=== PATIENT | female | born 1975 | race Hispanic/Latino ===

== ENCOUNTER 2023-04-15 15:51 | Emergency (ER) | payer BC, OTHER ==
[2023-04-15 17:40] LABS: Hematocrit 43.9 % (36.0-45.0); Lymphocytes % 22.6 % (15.3-44.8); MCV 88.4 fL (80-100); MPV 7.3 fL (7.6-11.3); RBC Red Blood Cell Count 4.96 M/uL (3.86-4.86)
[2023-04-15 17:46] LABS: Protime INR 1.11
[2023-04-15 17:46] LABS: Specific Gravity 1.012 (1.005-1.030)
[2023-04-15 17:57] LABS: Albumin 3.7 g/dL (3.4-5.0); Bilirubin Total 0.4 mg/dL (0.2-1.0); Potassium 3.5 mEq/L (3.5-5.1); Protein, Total 7.6 g/dL (6.4-8.2)
[2023-04-15 18:01] LABS: Specific Gravity 1.012 (1.005-1.030); Urine Bacteria None Seen /HPF (<20); Urine Bilirubin NEGATIVE (Negative); Urine Blood Negative (Negative); Urine Clarity Turbid (Clear); Urine Color Light-Yellow (Yellow); Urine Glucose NEGATIVE (Negative); Urine Mucus Slight /HPF (None Seen); Urine Protein NEGATIVE (Negative); Urine RBC <5 /HPF (None Seen); Urine Urobilinogen Normal (Normal); Urine pH 5.5 (5.0-7.0)
--- NOTE | 2023-04-15 18:52 | RAD REPORT ---
EXAM DESCRIPTION: CTAbdomen Pelvis W Contrast - 04/15/2023 6:22 pm CLINICAL HISTORY: Abdominal pain. EPIGASTRIC PAIN COMPARISON: No comparisons TECHNIQUE: Biphasic CT imaging of the abdomen and pelvis was performed with 100 ml non-ionic IV cont rast. All CT scans are performed using dose optimization technique as appropriate and may include automated exposure control or mA/KV adjustment according to patient size. FINDINGS: The lung bases are clear.Cholecystectomy clips. The liver, spleen, pancreas, adrenal glands and kidneys are within normal limits. No bowel obstruction, free air, free fluid or abscess. Mild sigmoid diverticulosis coli without diver ticulitis. The appendix is normal. No evidence of significant lymphadenopathy. Mild lumbar degenerative changes. IMPRESSION: No acute intra-abdominal or pelvic finding.
--- NOTE | 2023-04-15 19:18 | ER ---
Nurse's Notes [facility] Name: Umair Cedeno Age: 47 yrs Sex: Female : 1975 Arrival Date: 04/15/2023 Time: 15:51 Bed 6 Private MD: Diagnosis: Epigastric pain Presentation: 04/15 15:57 Chief complaint: Patient states: black diarrhea x 2 days ago. Pt reports sharp abd pain aa5 episodes today, currently denies pain. Pt denies nausea/vomiting, reports acid reflux. Coronavirus screen: diarrhea. Ebola Screen: Patient denies travel to an Ebola-affected area in the 21 days before illness onset. Initial Sepsis Screen: Does the patient meet any 2 criteria? No. Patient's initial sepsis screen is negative. Does the patient have a suspected source of infection? No. Patient's initial sepsis screen is negative. Risk Assessment: Do you want to hurt yourself or someone else? Patient reports no desire to harm self or others. Onset of symptoms was March 2023. 15:57 Acuity: CHAPARRO 3 aa5 15:57 Method Of Arrival: Ambulatory aa5 Historical: - Allergies: 15:59 Bactrim; aa5 15:59 tramadol; aa5 - PMHx: 15:59 Hypertensive disorder; Pre-diabetes; aa5 - PSHx: 15:59 monserrat meniscus repair; Cholecystectomy; section; aa5 - Immunization history:: Adult Immunizations unknown. - Social history:: Smoking status: Patient denies any tobacco usage or history of. Screenin:33 [facility] ED Fall Risk Assessment (Adult) History of falling in the last 3 months, jb4 including since admission No falls in past 3 months (0 pts) Confusion or Disorientation No (0 pts) Score/Fall Risk Level 0 - 2 = Low Risk Oriented to surroundings, Maintained a safe environment. Abuse screen: Denies threats or abuse. Nutritional screening: No deficits noted. Tuberculosis screening: No symptoms or risk factors identified. Assessment: 17:10 Reassessment: Patient appears in no apparent distress at this time. db 17:21 Reassessment: PATIENT AMBULATORY TO RESTROOM. db 19:16 Reassessment: Patient appears in no apparent distress at this time. Patient and/or jb4 family updated on plan of care and expected duration. Pain level reassessed. Patient is alert, oriented x 3, equal unlabored respirations, skin warm/dry/pink. Vital Signs: 15:57 BP 147 / 104; Pulse 88; Resp 18 S; Temp 97.6(TE); Pulse Ox 97% on R/A; Weight 103.87 kg aa5 (R); Height 5 ft. 2 in. (R); 19:00 BP 133 / 99; Pulse 81; Resp 16; Pulse Ox 99% ; jb4 15:57 Body Mass Index 41.88 (103.87 kg, 157.48 cm) aa5 ED Course: 15:55 Patient arrived in ED. im 15:57 Arm band placed on. aa5 15:59 Triage completed. aa5 16:03 Rohith Bhagat PA is PHCP. cp 16:03 Rohith Quan MD is Attending Physician. cp 16:40 Patient placed in an exam room, on a stretcher. ll1 17:09 Hilary Enriquez, RN is Primary Nurse. db 17:28 Inserted saline lock: 20 gauge in right antecubital area, using aseptic technique. db Blood collected. 18:24 CT Abd/Pelvis - IV Contrast Only In Process Unspecified. EDMS 19:17 Balod Santiago MD is Referral Physician. cp 19:33 Patient has correct armband on for positive identification. Placed in gown. Bed in low jb4 position. Call light in reach. Side rails up X 1. Client placed on continuous cardiac and pulse oximetry monitoring. NIBP monitoring applied. 19:33 No provider procedures requiring assistance completed. IV discontinued, intact, jb4 bleeding controlled, No redness/swelling at site. Pressure dressing applied. Administered Medications: No medications were administered Outcome: 19:17 Discharge ordered by . cp 19:33 Discharged to home ambulatory. jb4 19:33 Condition: stable 19:33 Discharge instructions given to patient, Instructed on discharge instructions, follow up and referral plans. medication usage, Demonstrated understanding of instructions, follow-up care, medications, Prescriptions given X 1. 19:34 Patient left the ED. jb4 Signatures: Dispatcher [employer] EDMS Rossy Mojica RN RN aa5 Rohith Bhagat PA PA cp Bryson, James, RN RN jb4 Sherie Portillo RN RN [facility] Hilary Enriquez, OTF RN db Sahu, Paige im
--- NOTE | 2023-04-15 19:18 | EDPHYS ---
Physician Documentation [facility] Name: Umair Cedeno Age: 47 yrs Sex: Female : 1975 Arrival Date: 04/15/2023 Time: 15:51 Bed 6 Private MD: ED Physician Rohith Quan HPI: 04/15 16:33 This 47 yrs old Female presents to ER via Ambulatory with complaints of cp Black/Tarry Stools. 16:33 Patient is a 47-year-old female with a history of hypertension and prediabetes who cp presents to the emergency department with complaints of black stools. Patient reports Thursday and Thursday she had diarrhea that appeared black and today she had 1 bowel movement that appeared black but with formed. Patient also reported some upper abdominal pain and that is what prompted her to come to the emergency department. Patient reports she does take ibuprofen 800 mg intermittently for knee pain and Ozempic for weight loss. Patient reports indigestion symptoms about twice a week and that she does take Pepto-Bismol pretty regularly for the symptoms. Historical: - Allergies: 15:59 Bactrim; aa5 15:59 tramadol; aa5 - PMHx: 15:59 Hypertensive disorder; Pre-diabetes; aa5 - PSHx: 15:59 monserrat meniscus repair; Cholecystectomy; section; aa5 - Immunization history:: Adult Immunizations unknown. - Social history:: Smoking status: Patient denies any tobacco usage or history of. ROS: 16:35 Constitutional: Negative for body aches, chills, fever, poor PO intake. cp 16:35 Eyes: Negative for injury, pain, redness, and discharge. cp 16:35 ENT: Negative for drainage from ear(s), ear pain, sore throat, difficulty swallowing, difficulty handling secretions. 16:35 Cardiovascular: Negative for chest pain, edema, palpitations. 16:35 Respiratory: Negative for cough, shortness of breath, wheezing. 16:35 Abdomen/GI: Positive for abdominal pain, diarrhea, black/tarry stool, Negative for vomiting, constipation. 16:35 Back: Negative for pain at rest, pain with movement. 16:35 : Negative for urinary symptoms, vaginal bleeding, vaginal discharge. 16:35 Neuro: Negative for altered mental status, dizziness, headache, syncope, weakness. 16:35 All other systems are negative. Exam: 16:40 Constitutional: The patient appears in no acute distress, alert, awake, cp non-diaphoretic, non-toxic, well developed, well nourished, overweight 16:40 Head/Face: Normocephalic, atraumatic. cp 16:40 Eyes: Periorbital structures: appear normal, Conjunctiva: normal, no exudate, no injection, Sclera: no appreciated abnormality, Lids and lashes: appear normal, bilaterally. 16:40 ENT: External ear(s): are unremarkable, Nose: is normal, Mouth: Lips: moist, Oral mucosa: pink and intact, moist, Posterior pharynx: is normal, airway is patent, no erythema, no exudate. 16:40 Chest/axilla: Inspection: normal. 16:40 Cardiovascular: Rate: normal, Rhythm: regular. 16:40 Respiratory: the patient does not display signs of respiratory distress, Respirations: normal, no use of accessory muscles, no retractions, labored breathing, is not present, Breath sounds: are clear throughout, no decreased breath sounds, no stridor, no wheezing. 16:40 Abdomen/GI: Inspection: obese Bowel sounds: active, all quadrants, Palpation: soft, in all quadrants, mild abdominal tenderness, in the epigastric area, rebound tenderness, is not appreciated, involuntary guarding, is not appreciated. 16:40 Back: pain, is absent, ROM is normal. 16:40 Skin: injury, is not appreciated, no rash present. 16:40 Neuro: Orientation: to person, place \T\ time. Mentation: is normal, Motor: moves all fours, strength is normal, Sensation: is normal. Vital Signs: 15:57 BP 147 / 104; Pulse 88; Resp 18 S; Temp 97.6(TE); Pulse Ox 97% on R/A; Weight 103.87 kg aa5 (R); Height 5 ft. 2 in. (R); 19:00 BP 133 / 99; Pulse 81; Resp 16; Pulse Ox 99% ; jb4 15:57 Body Mass Index 41.88 (103.87 kg, 157.48 cm) aa5 MDM: 16:03 Patient medically screened. cp 19:16 Data reviewed: vital signs, nurses notes, lab test result(s), radiologic studies, CT cp scan. 19:16 I considered the following discharge prescriptions or medication management in the cp emergency department Medications were administered in the Emergency Department. See MAR. Care significantly affected by the following chronic conditions: Hypertension. Counseling: I had a detailed discussion with the patient and/or guardian regarding: the historical points, exam findings, and any diagnostic results supporting the discharge/admit diagnosis, lab results, radiology results, the need for outpatient follow up, a press and blow machine tender. 04/15 16:32 Order name: CBC with Diff; Complete Time: 18:04 04/15 18:05 Interpretation: Normal except: RBC 4.96; MPV 7.3; EOSINOPHIL % 7.1; EOSA 0.6. 04/15 16:32 Order name: CMP; Complete Time: 18:04 04/15 18:05 Interpretation: Normal except: GFR 86; GLOB 3.9; A/G 0.9. 04/15 16:32 Order name: Lipase; Complete Time: 18:04 04/15 16:32 Order name: Test, Urine; Complete Time: 18:04 04/15 16:32 Order name: Urinalysis w/ reflexes; Complete Time: 18:04 04/15 18:05 Interpretation: [facility] Turbid; Reviewed. 04/15 16:32 Order name: PT-INR; Complete Time: 18:04 04/15 16:32 Order name: Ptt, Activated; Complete Time: 18:04 04/15 17:34 Order name: CT Abd/Pelvis - IV Contrast Only; Complete Time: 19:10 04/15 19:11 Interpretation: Report reviewed. 04/15 16:32 Order name: IV Saline Lock; Complete Time: 18:00 04/15 16:32 Order name: Labs collected and sent; Complete Time: 18:00 cp Administered Medications: No medications were administered Disposition Summary: 04/15/23 19:17 Discharge Ordered Location: Home cp Problem: new cp Symptoms: have improved cp Condition: Stable cp Diagnosis - Epigastric pain cp Followup: cp - With: Baldo Santiago MD - When: 1 week - Reason: Recheck today's complaints Discharge Instructions: - Discharge Summary Sheet cp - Abdominal Pain, Adult cp - Gastroesophageal Reflux Disease, Adult cp Forms: - Medication Reconciliation Form cp - Thank You Letter cp - Antibiotic Education cp - Prescription Opioid Use cp - Patient Portal Instructions cp Prescriptions: - Protonix 40 mg Oral Tablet - take 1 tablet by ORAL route once daily; 30 tablet; Refills: 0, Product cp Selection Permitted Signatures: Dispatcher [employer] Rossy Fregoso RN RN aa5 Rohith Bhagat PA PA cp Corrections: (The following items were deleted from the chart) 18:05 18:04 Normal except: RBC 4.96. cp cp
[2023-04-15 20:23] VITALS: TEMP 97.6
[2023-04-15 20:28] VITALS: BP 133/99; O2SAT 99
== END 2023-04-15 19:34 | disposition home or self-care (01) ==
LOC: ER 15:51 → EDSEX 15:51 → ER 19:34
DX: R10.13 Epigastric pain (principal); I10 Essential (primary) hypertension; R73.03 Prediabetes; Z88.1 Allergy status to other antibiotic agents; Z88.5 Allergy status to narcotic agent
CPT/HCPCS: 85025; 81001; 36415; 81025; 85610; 85730; 83690; 80053; 74177; Q9967; 99284